=== PATIENT | male | born 1985 | race Caucasian/White ===

== ENCOUNTER 2020-01-23 16:47 | Emergency (ER) | payer BC ==
[~2020-01-23] VITALS: Ht 162.6 cm; Wt 106.8 kg
[~2020-01-23 16:47] MED LIST: ONDA4TAB7 PO; OXYC1TAB15 PO
[2020-01-23 17:08] VITALS: BP 111/56
--- NOTE | 2020-01-23 17:45 | RAD ---
EXAMINATION: RIBS LEFT AND PA CHEST CLINICAL HISTORY: Rib pain following fall onto fence TECHNIQUE: RIBS LEFT AND PA CHEST Number of Images/Views: 4 COMPARISON: None FINDINGS: No acute rib fracture. Normal heart size. No focal airspace consolidation, pleural effusion, or pneumothorax. IMPRESSION: No acute rib fracture or acute cardiopulmonary abnormality. Electronically signed by: Francisco Javier Aguila DO (01/23/2020 5:42 PM) [id number]
[2020-01-23] MEDS ORDERED: NAPR-514 PO (18:32)
[2020-01-23] MEDS ORDERED: CYCL10TA2 PO (18:32)
--- NOTE | 2020-01-23 18:32 | PHYS DOC ---
Past Medical History Past Medical History: No Pertinent History Past Surgical History: Other Smoking Status: Current Every Day Smoker Alcohol Use: None General Adult EDM: Chief Complaint: RIB PAIN HPI: HPI: Patient is a 34 year old male who presents the ED today complaining of 7 out of 10 left lateral rib pain that began yesterday after he fell off a 4 foot ladder hitting his left ribs on a fence. Patient denies any loss of consciousness, denies hitting his head on the ground. Denies anything specifically exacerbating or relieving his pain. Patient describes his pain as sharp worse on deep breaths. Review of Systems: Review of Systems: Constitutional: Denies fever or chills. [] Eyes: Denies change in visual acuity. [] HENT: Denies nasal congestion or sore throat. [] Respiratory: Reports left lateral rib pain. Denies cough or shortness of b reath. [] Cardiovascular: Denies chest pain or edema. [] GI: Denies abdominal pain, nausea, vomiting, bloody stools or diarrhea. [] : Denies dysuria. [] Musculoskeletal: Denies back pain or joint pain. [] Integument: Denies rash. [] Neurologic: Denies headache, focal weakness or sensory changes. [] Endocrine: Denies polyuria or polydipsia. [] Lymphatic: Denies swollen glands. [] Psychiatric: Denies depression or anxiety. [] Heart Score: Risk Factors: Risk Factors: DM, Current or recent (<one month) smoker, HTN, HLP, family history of CAD, obesity. Risk Scores: Score 0 - 3: 2.5% MACE over next 6 weeks - Discharge Home Score 4 - 6: 20.3% MACE over next 6 weeks - Admit for Clinical Observation Score 7 - 10: 72.7% MACE over next 6 weeks - Early Invasive Strategies Allergies: Allergies: Allergies Coded Allergies Type Severity Reaction Last Updated Verified No Known Drug Allergies 05/05/16 No Physical Exam: PE: Constitutional: Well developed, well nourished, no acute distress, non-toxic appearance. [] HENT: Normocephalic, atraumatic, bilateral external ears normal, oropharynx moist, no oral exudates, nose normal. [] Eyes: PERRLA, EOMI, conjunctiva normal, no discharge. [] Neck: Normal range of motion, no tenderness, supple, no stridor. [] Cardiovascular:Heart rate regular rhythm, no murmur [] Lungs & Thorax: Left rib region with no obvious bruising, no bruising to the entire chest region, tenderness on palpation of left lateral rib mid axillary line approximately ribs 4 and 5. Bilateral breath sounds clear to auscultation [] Abdomen: Bowel sounds normal, soft, no tenderness, no masses, no pulsatile masses. [] Skin: Warm, dry, no erythema, no rash. [] Back: No tenderness, no CVA tenderness. [] Extremities: No tenderness, no cyanosis, no clubbing, ROM intact, no edema. [] Neurologic: Alert and oriented X 3, normal motor function, normal sensory function, no focal deficits noted. [] Psychologic: Affect normal, judgement normal, mood normal. [] Current Patient Data: Vital Signs: Vital Signs Date Time Temp Pulse Resp B/P (MAP) Pulse Ox O2 Delivery O2 Flow Rate FiO2 01/23/20 17:08 97.7 73 18 111/56 (74) 94 Room Air 97.7 EKG: EKG: [] Radiology/Procedures: Radiology/Procedures: [] Course & Med Decision Making: Course & Med Decision Making Pertinent Labs and Imaging studies reviewed. (See chart for details) This is a 34-year-old male patient with left lateral rib pain after falling on a fence yesterday. Left lateral rib x-rays including PA chest are negative for any acute findings as interpreted by radiologist. Discharge to home. Ice elevation encouraged. Deep breaths encouraged. Follow-up with PCP in 1 to 2 weeks. Mireya Disclaimer: Mireya Disclaimer: This electronic medical record was generated, in whole or in part, using a voice recognition dictation system. Departure Departure Impression: Primary Impression: Contusion of rib on left side Qualified Codes: S20.212A - Contusion of left front wall of thorax, initial encounter Additional Impression: Fall Qualified Codes: W19.XXXA - Unspecified fall, initial encounter Disposition: HOME, SELF-CARE Condition: STABLE Referrals: NO PCP (PCP) follow up with your doctor in one week Patient Instructions: Fall Prevention and Home Safety, Rib Contusion Additional Instructions: You were evaluated in the emergency room for left rib contusion. Your left rib x-rays including chest x-rays were negative for any acute findings. We encourage you to take deep breaths. Apply ice to the affected area. Follow-up with your primary care doctor in 1 to 2 weeks. Scripts Naproxen (NAPROXEN) 500 Mg Tablet 1 TAB PO BID for pain for 30 Days, #60 TAB 0 Refills Prov: CAM WARD APRN 01/23/20 Cyclobenzaprine Hcl (CYCLOBENZAPRINE HCL) 10 Mg Tablet 1 TAB PO TID, #30 TAB Prov: CAM WARD APRN 01/23/20 Justicifation of Admission Dx: Justifications for Admission: Justification of Admission Dx: N/A CAM WARD APRN Jan 23, 2020 18:32
== END 2020-01-23 19:15 | disposition home or self-care (01) ==
LOC: ER 16:47
DX: S20.212A Contusion of left front wall of thorax, initial encounter (principal); F17.200 Nicotine dependence, unspecified, uncomplicated; Z98.890 Other specified postprocedural states; W18.39XA Other fall on same level, initial encounter; Y93.89 Activity, other specified; Y92.89 Other specified places as the place of occurrence of the external cause; Y99.8 Other external cause status
CPT/HCPCS: 71101; 99284